=== PATIENT | male | born 1985 ===

== ENCOUNTER 2017-03-18 16:28 | Emergency (ER) | payer BC ==
[2017-03-18 16:36] VITALS: BP 129/65; PULSE 79; RESP 16; TEMP 98.8; O2SAT 96
[2017-03-18 16:37] VITALS: BMI 29.6
--- NOTE | 2017-03-18 17:01 | ED PDOC ---
HPI: CCC, URI, Sore Throat Time Seen by Provider: 03/18/17 16:43 Chief Complaint (Nursing): Cough, Cold, Congestion Chief Complaint (Provider): cough History Per: Patient History/Exam Limitations: no limitations Onset/Duration Of Symptoms: Days (x1) Current Symptoms Are (Timing): Still Present Additional Complaint(s): Shadi Khoury is a 31 year old male who presents to the emergency department with a complaint of bloody cough today. Denied fever, chills, chest pain, nausea or vomiting. Patient stated he has been sick on and off for a month with son recently diagnosed with bronchitis and also reported taking 1 course of Zpack and NyQuil for treatment. 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 PMD: none provided Past Medical History Reviewed: Historical Data, Nursing Documentation, Vital Signs Vital Signs: Last Vital Signs Temp 98.8 F 03/18/17 16:36 Pulse 79 03/18/17 16:36 Resp 16 03/18/17 16:36 BP 129/65 03/18/17 16:36 Pulse Ox 96 03/18/17 18:39 - Medical History PMH: No Chronic Diseases - Surgical History Surgical History: Denies: No Surg Hx Other surgeries: B/L neck lympha nodes removed - Family History Family History: States: Unknown Family Hx - Home Medications Home Medications: Ambulatory Orders Medication Instructions Recorded Albuterol HFA [Ventolin HFA 90 2 puff IH [id number] #1 inh 03/18/17 mcg/actuation (8 g)] Amoxicillin/Clavulanate [Augmentin 1 tab PO BID #14 tab 03/18/17 875 MG-125 MG] Benzonatate [Tessalon Perle] 100 mg PO TID PRN #15 capsule 03/18/17 - Allergies Allergies/Adverse Reactions: Allergies Allergy/AdvReac Type Severity Reaction Status Date / Time No Known Allergies Allergy Verified 03/18/17 16:37 Review of Systems ROS Statement: Except As Marked, All Systems Reviewed And Found Negative Constitutional: Negative for: Fever, Chills Cardiovascular: Negative for: Chest Pain Respiratory: Positive for: Cough, Hemoptysis, Sputum Gastrointestinal: Negative for: Nausea, Vomiting Physical Exam - Reviewed Nursing Documentation Reviewed: Yes Vital Signs Reviewed: Yes - Physical Exam Appears: Positive for: Well, Non-toxic, No Acute Distress Head Exam: Positive for: ATRAUMATIC, NORMAL INSPECTION, NORMOCEPHALIC Skin: Positive for: Normal Color Eye Exam: Positive for: Normal appearance, EOMI, PERRL. Negative for: Nystagmus ENT: Positive for: Normal ENT Inspection. Negative for: Nasal Congestion, Pharyngeal Erythema, Tonsillar Swelling Neck: Positive for: Normal, Painless ROM, Supple. Negative for: Decreased ROM Cardiovascular/Chest: Positive for: Regular Rate, Rhythm, Chest Non Tender Respiratory: Positive for: Normal Breath Sounds, Accessory Muscle Use. Negative for: Decreased Breath Sounds, Wheezing, Respiratory Distress Gastrointestinal/Abdominal: Positive for: Normal Exam Extremity: Positive for: Normal ROM. Negative for: Tenderness, Pedal Edema Neurologic/Psych: Positive for: Alert, Oriented - ECG O2 Sat by Pulse Oximetry: 96 (RA) Pulse Ox Interpretation: Normal Medical Decision Making Medical Decision Making: Initial Impression: Cough Initial Plan: * CXR Time: 1748 --CXR FINDINGS: LUNGS: No active pulmonary disease. PLEURA: No significant pleural effusion identified. No pneumothorax apparent. CARDIOVASCULAR: Normal. OSSEOUS STRUCTURES: No significant abnormalities. VISUALIZED UPPER ABDOMEN: Normal. OTHER FINDINGS: None. IMPRESSION: No active disease. Time: 1833 --Upon provider reevaluation, patient is medically stable and requires no further treatment in the ED at this time. Patient will be discharged home with Rx for Ventolin HFA, Augmentin 875mg and Tesalon Perle 100mg. Counseling was provided and all questions were answered regarding diagnosis and need for follow up with PCP in 2-3 days. There is agreement to discharge plan. Return if symptoms persist or worsen. Clinical Impression: Cough Scribe Attestation: Documented by Lupe Greene, acting as a scribe for Nicko Starkey MD. Provider Scribe Attestation: All medical record entries made by the Scribe were at my direction and personally dictated by me. I have reviewed the chart and agree that the record accurately reflects my personal performance of the history, physical exam, medical decision making, and the department course for this patient. I have also personally directed, reviewed, and agree with the discharge instructions and disposition. Disposition - Clinical Impression Clinical Impression: Cough - Patient ED Disposition Is Patient to be Admitted: No Doctor Will See Patient In The: Office Counseled Patient/Family Regarding: Studies Performed, Diagnosis, Need For Followup - Disposition Referrals: [facility] [Outside] Disposition: Routine/Home Disposition Time: 18:33 Condition: GOOD Additional Instructions: Take your medications . Return for worsening. Follow up with your PCP in 2-3 days. Prescriptions: Albuterol HFA [Ventolin HFA 90 mcg/actuation (8 g)] 2 puff IH [id number] #1 inh Amoxicillin/Clavulanate [Augmentin 875 MG-125 MG] 1 tab PO BID #14 tab Benzonatate [Tessalon Perle] 100 mg PO TID PRN #15 capsule PRN Reason: Cough Instructions: Sinusitis (ED), Acute Bronchitis (ED)
--- NOTE | 2017-03-18 17:50 | RAD ---
HISTORY: cough COMPARISON: No prior. TECHNIQUE: Chest PA and lateral FINDINGS: LUNGS: No active pulmonary disease. PLEURA: No significant pleural effusion identified. No pneumothorax apparent. CARDIOVASCULAR: Normal. OSSEOUS STRUCTURES: No significant abnormalities. VISUALIZED UPPER ABDOMEN: Normal. OTHER FINDINGS: None. IMPRESSION: No active disease.
== END 2017-03-18 18:49 | disposition home or self-care (01) ==
LOC: H.ER 16:28
DX: R05 Cough (principal); Z20.1 Contact with and (suspected) exposure to tuberculosis